=== PATIENT | male | born 1985 | race Hispanic/Latino ===

== ENCOUNTER 2017-12-23 17:20 | Emergency (ER) | payer SELFPAY ==
[~2017-12-23] VITALS: Ht 165.1 cm; Wt 72.6 kg
[2017-12-23 20:26] LABS: BASOPHILS % 0.5 % (0.0-1.0); EOSINOPHILS # (AUTO) 0.1 (0.0-0.4); EOSINOPHILS % 1.9 % (0.0-6.0); HEMATOCRIT 44.3 % (38.2-49.6); HEMOGLOBIN 14.9 g/dL (14.0-18.0); LYMPHOCYTES # (AUTO) 2.4 (1.0-3.2); LYMPHOCYTES % 38.7 % (18.0-39.1); MEAN CORPUSCULAR HGB CONC 33.6 g/dL (31-35); MEAN CORPUSCULAR VOLUME 83.3 fL (81-99); MONOCYTES # (AUTO) 0.5 (0.2-0.8); NEUTROPHILS # (AUTO) 3.2 (2.1-6.9); NEUTROPHILS % 50.7 % (38.7-80.0); PLATELET COUNT 182 x10e3/uL (140-360); RED BLOOD COUNT 5.32 x10e6/uL (4.3-5.7); RED CELL DISTRIBUTION WIDTH 12.5 % (11.7-14.4)
[2017-12-23 20:44] LABS: ALANINE AMINOTRANSFERASE 33 IU/L (0-55); ALBUMIN 4.5 g/dL (3.5-5.0); ALBUMIN/GLOBULIN RATIO 1.3 (0.8-2.0); ALKALINE PHOSPHATASE 80 IU/L (40-150); ANION GAP 12.6 mmol/L (8-16); BLOOD UREA NITROGEN 7 mg/dL (7-26); BUN/CREATININE RATIO 8 (6-25); CALCIUM 9.4 mg/dL (8.4-10.2); CARBON DIOXIDE 25 mmol/L (22-29); CHLORIDE 107 mmol/L (98-107); CREATININE, SERUM 0.86 mg/dL (0.72-1.25); EST GLOMERULAR FILTRATION RATE > 60 ML/MIN (60-); GLUCOSE 118 mg/dL (74-118); POTASSIUM 3.6 mmol/L (3.5-5.1); SODIUM 141 mmol/L (136-145)
[2017-12-23 20:49] LABS: BILIRUBIN,URINE NEGATIVE (NEGATIVE); CLARITY,URINE CLEAR (CLEAR); COLOR,URINE STRAW (YELLOW); KETONES,URINE NEGATIVE (NEGATIVE); LEUKOCYTE ESTERASE ,URINE NEGATIVE (NEGATIVE); NITRITE,URINE NEGATIVE (NEGATIVE); PROTEIN,URINE DIPSTICK NEGATIVE (NEGATIVE); URINE UROBILINOGEN 0.2 mg/dL (0.2 - 1)
[2017-12-23 21:02] LABS: TRANSITIONAL EPI CELLS,URINE RARE; WBC,URINE (MAN) 0-5 /HPF (0-5)
[2017-12-23] MEDS ORDERED: ZOFRAN ODT4 MG SL (22:52)
== END 2017-12-23 23:07 | disposition home or self-care (01) ==
LOC: ER 17:20
DX: R10.13 Epigastric pain (principal); R11.0 Nausea; K29.00 Acute gastritis without bleeding
CPT/HCPCS: 36415; 80053; 81001; 85025; 87086; 99284

== ENCOUNTER 2024-10-23 11:44 | Emergency (ER) | payer OTHER ==
[~2024-10-23] VITALS: Ht 167.6 cm; Wt 78.9 kg
[~2024-10-23 11:44] MED LIST: ZOFRAN ODT4 MG SL
[2024-10-23] MEDS ORDERED: PANTOPRAZOLE SO20 MG (12:34)
[2024-10-23] MEDS: FAMOTIDINE 20 MG/2 ML VIAL IV STA (13:17)
[2024-10-23] MEDS: KETOROLAC TROMETHAMINE 30 MG/ML VIAL IV STA (13:18)
[2024-10-23] MEDS: SODIUM CHLORIDE 0.9% 1000ML 1,000 ML IV SCH (13:18)
[2024-10-23] MEDS ORDERED: IOPAMIDOL 370 MG/ML 100 ML INFUS..BTL INJ ONE (15:05)
[2024-10-23] MEDS ORDERED: PANTOPRAZOLE SO40 MG PO (16:11)
[2024-10-23] MEDS ORDERED: FAMOTIDINE40 MG PO (16:12)
[2024-10-23] MEDS ORDERED: CARAFATE1 GM/10 ML PO (16:15)
[2024-10-23] MEDS ORDERED: ONDANSETRON HCL4 MG PO (16:17)
[2024-10-23 16:21] VITALS: PULSE 72; RESP 14; TEMP 98; O2SAT 98
[2024-10-23] MEDS ORDERED: ATIVAN2 MG PO (16:27)
== END 2024-10-23 16:38 | disposition home or self-care (01) ==
LOC: FSED 11:48
DX: R10.13 Epigastric pain (principal); K29.70 Gastritis, unspecified, without bleeding; R11.2 Nausea with vomiting, unspecified; K21.9 Gastro-esophageal reflux disease without esophagitis; F10.20 Alcohol dependence, uncomplicated; R53.1 Weakness; R53.81 Other malaise
CPT/HCPCS: 0223U; 74177; 80048; 80076; 81003; 85025; 87400; 96374; 96375; 99284; J1885; J2470; J7030; Q9967